=== PATIENT | female | born 1960 | race Caucasian/White ===

== ENCOUNTER 2023-12-29 12:08 | Emergency (ER) | payer MEDICAID, OTHER ==
[~2023-12-29] VITALS: Ht 162.6 cm; Wt 55.0 kg
[2023-12-29 12:21] VITALS: O2SAT 98
[2023-12-29 13:22] LABS: BASOPHILS % 0.8 % (0.0-2.0); EOSINOPHILS % 1.3 % (0.0-5.0); HEMATOCRIT. 41.2 % (36.0-48.0); HEMOGLOBIN. 13.8 g/dL (12.0-16.0); LYMPHOCYTES % 11.6 % (20.0-50.0); MEAN CORPUSCULAR HEMOGLOBIN 29.3 pg (28.0-32.0); MEAN CORPUSCULAR HGB CONC 33.6 g/dL (31.0-37.0); MEAN CORPUSCULAR VOLUME 87.4 fL (81.0-99.0); MEAN PLATELET VOLUME 9.5 fl (7.4-10.4); NEUTROPHILS % 81.3 % (40.0-76.0); PLATELET 209 x1000/uL (130-400); RED BLOOD CELL COUNT 4.71 mill/uL (4.2-5.4); RED CELL DISTRIBUTION WIDTH 12.6 % (11.6-14.6); WHITE BLOOD COUNT 5.9 x1000/uL (4.5-11.0)
[2023-12-29 13:33] LABS: CHLORIDE 100 mEq/L (98-107); POTASSIUM 4.1 mEq/L (3.5-5.1); SODIUM 134 mEq/L (136-145)
[2023-12-29 13:34] LABS: CALCIUM 9.3 mg/dL (8.7-10.4); CARBON DIOXIDE 21 mEq/L (21-32)
[2023-12-29 13:38] LABS: CREATININE 0.8 mg/dL (0.6-1.0)
[2023-12-29 13:39] LABS: GLUCOSE 231 mg/dL (70-105); UREA NITROGEN BLOOD 19 mg/dL (9-23)
[2023-12-29 13:40] LABS: ALANINE AMINOTRANSFERASE 28 IU/L (10-49); ALBUMIN 4.4 g/dL (3.2-4.8); ASPARTATE AMINOTRANSFERASE 37 IU/L (<34)
[2023-12-29 13:41] LABS: BILIRUBIN DIRECT 0.3 mg/dL (<=3.0)
[2023-12-29 14:11] LABS: TROPONIN I HIGH SENSITIVITY < 4 ng/L (3.0-34)
[2023-12-29] MEDS: SODIUM CHLORIDE 0.9% 500 ML IV ONE (15:19)
[2023-12-29 16:07] VITALS: BP 117/76; PULSE 71; RESP 14; TEMP 98
== END 2023-12-29 16:07 | disposition home or self-care (01) ==
LOC: ER 12:08 → EDBEDREQ 14:56 → ER 16:07 → CANBEDREQ 12-31 20:54
DX: E11.65 Type 2 diabetes mellitus with hyperglycemia (principal); R53.1 Weakness
CPT/HCPCS: 80076; 80048; 83690; 85025; 84484; 36415; 71045; 93005; 96360; 99285; J7040; Z7610 ×2

== ENCOUNTER 2024-01-06 11:55 | Inpatient (IN) | payer OTHER ==
[~2024-01-06] VITALS: Ht 157.5 cm; Wt 54.0 kg
[2024-01-06] MEDS: KETOROLAC 30MG/ML VIAL IV STA (12:19)
[2024-01-06 13:10] LABS: BASOPHILS % 0.4 % (0.0-2.0); EOSINOPHILS % 0.3 % (0.0-5.0); HEMATOCRIT. 43.5 % (36.0-48.0); HEMOGLOBIN. 14.4 g/dL (12.0-16.0); LYMPHOCYTES % 7.1 % (20.0-50.0); MEAN CORPUSCULAR HEMOGLOBIN 29.1 pg (28.0-32.0); MEAN CORPUSCULAR VOLUME 88.1 fL (81.0-99.0); MEAN PLATELET VOLUME 9.9 fl (7.4-10.4); MONOCYTES % 3.3 % (2.0-8.0); NEUTROPHILS % 88.9 % (40.0-76.0); PLATELET 212 x1000/uL (130-400); RED BLOOD CELL COUNT 4.94 mill/uL (4.2-5.4); RED CELL DISTRIBUTION WIDTH 12.9 % (11.6-14.6); WHITE BLOOD COUNT 9.2 x1000/uL (4.5-11.0)
[2024-01-06 13:19] LABS: CARBON DIOXIDE 14 mEq/L (21-32); CHLORIDE 100 mEq/L (98-107); INR 0.9; POTASSIUM 4.2 mEq/L (3.5-5.1); PROTHROMBIN TIME 10.5 sec (9.6-11.0); SODIUM 135 mEq/L (136-145)
[2024-01-06 13:20] LABS: CALCIUM 9.5 mg/dL (8.7-10.4)
[2024-01-06 13:24] LABS: CREATININE 0.9 mg/dL (0.6-1.0)
[2024-01-06 13:25] LABS: GLUCOSE 181 mg/dL (70-105); UREA NITROGEN BLOOD 25 mg/dL (9-23)
[2024-01-06] MEDS: SODIUM CHLORIDE 0.9% 1,000 ML IV ONE ×2 (13:49→20:04)
[2024-01-06] MEDS: ONDANSETRON HCL 4MG/2ML INJ IV STA (13:53)
[2024-01-06] MEDS: FAMOTIDINE 20MG/2ML VIAL IV ONE (13:57)
[2024-01-06 14:40] LABS: ALANINE AMINOTRANSFERASE 34 IU/L (10-49); ALBUMIN 4.2 g/dL (3.2-4.8); ASPARTATE AMINOTRANSFERASE 37 IU/L (<34); BILIRUBIN DIRECT 0.3 mg/dL (<=3.0); PROTEIN TOTAL 7.2 g/dL (6.0-8.3)
[2024-01-06 15:30] LABS: ETHANOL BLOOD < 10 mg/dL (<10); TROPONIN I HIGH SENSITIVITY < 4 ng/L (3.0-34)
[2024-01-06 16:01] LABS: TROPONIN I HIGH SENSITIVITY < 4 ng/L (3.0-34)
[2024-01-06 16:09] LABS: CLARITY URINE CLEAR (CLEAR); COLOR URINE YELLOW (YELLOW); GLUCOSE URINE 3+ (NEGATIVE); KETONES URINE 4+ (NEGATIVE); LEUKOCYTE ESTERASE URINE NEGATIVE (NEGATIVE); NITRITE URINE NEGATIVE (NEGATIVE); OCCULT BLOOD URINE NEGATIVE (NEGATIVE); PROTEIN URINE NEGATIVE (NEGATIVE); SPECIFIC GRAVITY URINE 1.034 (1.005-1.030); UROBILINOGEN URINE 0.2 E.U./dL (0.2-1.0)
[2024-01-06 16:59] LABS: BACTERIA URINE TRACE; RBC URINE 0-2 /hpf (0-2); SQUAMOUS EPITHELIAL CELL URINE FEW /lpf (RARE/1+); WBC URINE 0-2 /hpf (0-2)
[2024-01-06] MEDS: ONDANSETRON HCL 4MG/2ML INJ IV ONE (20:04)
[2024-01-06] MEDS: METOCLOPRAMIDE HCL 10MG/2ML VIAL IV NR (23:02)
[2024-01-06] MEDS: SODIUM CHLORIDE 0.9% 1,000 ML IV NR (23:02)
[2024-01-07] VITALS (37 sets, daily range): BP systolic 71–166; BP diastolic 36–80; PULSE 72–106; RESP 17–35; TEMP 97.1–99.7
[2024-01-07] MEDS ORDERED: DEXTROSE 50% WATER 50ML SYRINGE IV PRN ×2 (04:30→17:00)
[2024-01-07] MEDS ORDERED: NALOXONE HCL 0.4MG/ML VIAL IV PRN (04:45)
[2024-01-07] MEDS: BLOOD SUGAR DIAGNOSTIC STRIP TEST SCH ×2 (06:49→17:00)
[2024-01-07] MEDS: HYDROCODONE/ACETAMINOPHEN 5/325MG TABLET PO PRN (09:08)
[2024-01-07] MEDS: INSULIN LISPRO 100 UNITS/ML SUBCUT SCH (09:10)
[2024-01-07] MEDS: LISINOPRIL 40MG TABLET PO SCH (09:14)
[2024-01-07] MEDS ORDERED: SODIUM CHLORIDE 0.9% 1,000 ML IV SCH (12:00)
[2024-01-07] MEDS: INSULIN GLARGINE 100 UNITS/ML SUBCUT NR (12:38)
[2024-01-07 12:40] LABS: CHLORIDE 111 mEq/L (98-107); POTASSIUM 4.9 mEq/L (3.5-5.1); SODIUM 139 mEq/L (136-145)
[2024-01-07 12:42] LABS: CALCIUM 8.9 mg/dL (8.7-10.4)
[2024-01-07 12:46] LABS: CREATININE 1.2 mg/dL (0.6-1.0); GLUCOSE 297 mg/dL (70-105); UREA NITROGEN BLOOD 17 mg/dL (9-23)
[2024-01-07 12:59] LABS: CARBON DIOXIDE < 10 mEq/L (21-32)
[2024-01-07] MEDS: DEXT 5%/0.45% NACL 1000ML 1,000 ML IV SCH ×2 (14:57→20:58)
[2024-01-07] MEDS ORDERED: MAGNESIUM 2 G PREMIX 50 ML IV PRN (17:00)
[2024-01-07] MEDS ORDERED: BLOOD SUGAR DIAGNOSTIC STRIP TEST PRN (17:00)
[2024-01-07 17:22] LABS: CHLORIDE 108 mEq/L (98-107); SODIUM 134 mEq/L (136-145)
[2024-01-07 17:23] LABS: CALCIUM 8.4 mg/dL (8.7-10.4)
[2024-01-07 17:28] LABS: CREATININE 1.2 mg/dL (0.6-1.0); GLUCOSE 367 mg/dL (70-105)
[2024-01-07 17:29] LABS: UREA NITROGEN BLOOD 14 mg/dL (9-23)
[2024-01-07 17:31] LABS: PHOSPHORUS 3.1 mg/dL (2.5-4.9)
[2024-01-07 17:35] LABS: CARBON DIOXIDE < 10 mEq/L (21-32)
[2024-01-07] MEDS: PANTOPRAZOLE SODIUM 40 MG/VIAL IV SCH (17:35)
[2024-01-07] MEDS: INSULIN REGULAR 100U/100ML PMX 100 ML IV SCH (17:36)
[2024-01-07 18:09] LABS: BG BASE EXCESS -27.8 mmol/L (-2.0-2.0); BG CARBOXYHEMOGLOBIN 0.1 % (0.5-1.5); BG DEOXYHEMOGLOBIN 0.9 % (0.0-5.0); BG FRACTION INSPIRED OXYGEN 21; BG HCO3 ACT 2.2 mmol/L (22.0-26.0); BG METHEMOGLOBIN 0.3 % (0.0-1.5); BG OXYGEN SATURATION 99.1 % (92.0-98.5); BG OXYHEMOGLOBIN 98.7 % (94.0-97.0); BG PCO2 9.9 mmHg (35.0-45.0); BG PH 6.969 (7.350-7.450); BG PO2 148.9 mmHg (75.0-100.0); BG SAMPLE SITE RIGHT RADIAL; BG TOTAL HEMOGLOBIN 14.3 g/dL (12.0-18.0); BG VENT MODE ROOM AIR
[2024-01-07] MEDS: SODIUM CHLORIDE 0.9% 1,000 ML IV SCH (18:43)
[2024-01-07] MEDS ORDERED: DEXT 5%/0.9% NACL 1,000 ML IV SCH (20:45)
[2024-01-07] MEDS: ONDANSETRON HCL 4MG/2ML INJ IV PRN (20:57)
[2024-01-07] MEDS: ATORVASTATIN CALCIUM 10MG TABLET PO SCH (21:00)
[2024-01-07 21:43] LABS: CHLORIDE 113 mEq/L (98-107); POTASSIUM 4.7 mEq/L (3.5-5.1); SODIUM 137 mEq/L (136-145)
[2024-01-07 21:45] LABS: CALCIUM 8.6 mg/dL (8.7-10.4)
[2024-01-07 21:47] LABS: BG BASE EXCESS -26.7 mmol/L (-2.0-2.0); BG CARBOXYHEMOGLOBIN 0.3 % (0.5-1.5); BG DEOXYHEMOGLOBIN 0.5 % (0.0-5.0); BG FRACTION INSPIRED OXYGEN 21; BG HCO3 ACT 2.5 mmol/L (22.0-26.0); BG METHEMOGLOBIN 0.3 % (0.0-1.5); BG OXYGEN SATURATION 99.5 % (92.0-98.5); BG OXYHEMOGLOBIN 98.9 % (94.0-97.0); BG PH 7.009 (7.350-7.450); BG PO2 184.9 mmHg (75.0-100.0); BG SAMPLE SITE RIGHT RADIAL; BG TOTAL HEMOGLOBIN 13.5 g/dL (12.0-18.0); BG VENT MODE ROOM AIR
[2024-01-07 21:49] LABS: CREATININE 1.1 mg/dL (0.6-1.0); GLUCOSE 221 mg/dL (70-105)
[2024-01-07 21:50] LABS: BG BASE EXCESS -26.4 mmol/L (-2.0-2.0); BG CARBOXYHEMOGLOBIN 0.2 % (0.5-1.5); BG DEOXYHEMOGLOBIN 1.2 % (0.0-5.0); BG FRACTION INSPIRED OXYGEN 21; BG HCO3 ACT 2.5 mmol/L (22.0-26.0); BG METHEMOGLOBIN 0.1 % (0.0-1.5); BG OXYGEN SATURATION 98.8 % (92.0-98.5); BG OXYHEMOGLOBIN 98.5 % (94.0-97.0); BG PCO2 9.9 mmHg (35.0-45.0); BG PH 7.019 (7.350-7.450); BG PO2 140.1 mmHg (75.0-100.0); BG SAMPLE SITE RIGHT RADIAL; BG TOTAL HEMOGLOBIN 14.2 g/dL (12.0-18.0); BG VENT MODE ROOM AIR
[2024-01-07 21:50] LABS: UREA NITROGEN BLOOD 14 mg/dL (9-23)
[2024-01-07 21:52] LABS: PHOSPHORUS 2.1 mg/dL (2.5-4.9)
[2024-01-07 21:57] LABS: CARBON DIOXIDE < 10 mEq/L (21-32)
[2024-01-07] MEDS ORDERED: DEXTROSE 5% WATER 1,000 ML IV SCH (22:30)
[2024-01-07] MEDS: SODIUM BICARBONATE 150MEQ in DEXTROSE 5% WATER 1000ML IV SCH (23:11)
[2024-01-08] VITALS (97 sets, daily range): BP systolic 70–124; BP diastolic 48–83; PULSE 77–110; RESP 15–36; TEMP 97.5–98.2
[2024-01-08] MEDS: NOREPINEPHRINE 8MG/250ML PMX 250 ML IV PRN (00:44)
[2024-01-08 02:41] LABS: CHLORIDE 113 mEq/L (98-107); POTASSIUM 4.1 mEq/L (3.5-5.1); SODIUM 139 mEq/L (136-145)
[2024-01-08 02:43] LABS: CALCIUM 8.6 mg/dL (8.7-10.4)
[2024-01-08 02:48] LABS: CREATININE 1.1 mg/dL (0.6-1.0); GLUCOSE 119 mg/dL (70-105); UREA NITROGEN BLOOD 18 mg/dL (9-23)
[2024-01-08 02:53] LABS: CARBON DIOXIDE < 10 mEq/L (21-32); PHOSPHORUS 0.7 mg/dL (2.5-4.9)
[2024-01-08 06:42] LABS: HEMATOCRIT. 40.6 % (36.0-48.0); HEMOGLOBIN. 13.2 g/dL (12.0-16.0); MEAN CORPUSCULAR HEMOGLOBIN 28.3 pg (28.0-32.0); MEAN CORPUSCULAR HGB CONC 32.4 g/dL (31.0-37.0); MEAN CORPUSCULAR VOLUME 87.2 fL (81.0-99.0); MEAN PLATELET VOLUME 10.1 fl (7.4-10.4); PLATELET 262 x1000/uL (130-400); RED BLOOD CELL COUNT 4.65 mill/uL (4.2-5.4); RED CELL DISTRIBUTION WIDTH 13.1 % (11.6-14.6); WHITE BLOOD COUNT 27.3 x1000/uL (4.5-11.0)
[2024-01-08 06:47] LABS: CHLORIDE 110 mEq/L (98-107); POTASSIUM 3.8 mEq/L (3.5-5.1); SODIUM 138 mEq/L (136-145)
[2024-01-08 06:48] LABS: CALCIUM 8.4 mg/dL (8.7-10.4)
[2024-01-08 06:53] LABS: GLUCOSE 126 mg/dL (70-105); UREA NITROGEN BLOOD 19 mg/dL (9-23)
[2024-01-08 06:57] LABS: DIFFERENTIAL COMMENT 1
[2024-01-08] MEDS ORDERED: LIDOCAINE HCL 1% 10 MG/ML 10ML VIAL ONE (07:29)
[2024-01-08 08:10] LABS: PHOSPHORUS 0.6 mg/dL (2.5-4.9)
[2024-01-08 08:11] LABS: CARBON DIOXIDE < 10 mEq/L (21-32)
[2024-01-08 09:58] LABS: BG BASE EXCESS -13.4 mmol/L (-2.0-2.0); BG CARBOXYHEMOGLOBIN 0.2 % (0.5-1.5); BG DEOXYHEMOGLOBIN 1.6 % (0.0-5.0); BG FRACTION INSPIRED OXYGEN 21; BG HCO3 ACT 9.2 mmol/L (22.0-26.0); BG METHEMOGLOBIN 0.1 % (0.0-1.5); BG OXYGEN SATURATION 98.4 % (92.0-98.5); BG OXYHEMOGLOBIN 98.1 % (94.0-97.0); BG PCO2 16.6 mmHg (35.0-45.0); BG PH 7.363 (7.350-7.450); BG SAMPLE SITE RIGHT RADIAL; BG TOTAL HEMOGLOBIN 13.8 g/dL (12.0-18.0); BG VENT MODE ROOM AIR
[2024-01-08] MEDS ORDERED: IPRATROPIUM/ALBUTEROL 0.5-3(2.5)MG/3ML NEB HHN PRN (11:15)
[2024-01-08 11:38] LABS: POTASSIUM 3.8 mEq/L (3.5-5.1)
[2024-01-08 11:39] LABS: CALCIUM 8.4 mg/dL (8.7-10.4)
[2024-01-08] MEDS: POTASSIUM PHOSPHATE 30 MMOL in DEXT 5% WATER 490 ML IV SCH (11:53)
[2024-01-08 16:11] LABS: POTASSIUM 3.9 mEq/L (3.5-5.1)
[2024-01-08 16:13] LABS: CALCIUM 7.9 mg/dL (8.7-10.4)
[2024-01-08] MEDS: DEXT 5%/0.45% NACL 1000ML 1,000 ML IV SCH (17:58)
[2024-01-08 18:49] LABS: CARBON DIOXIDE 16 mEq/L (21-32); CHLORIDE 106 mEq/L (98-107); POTASSIUM 3.7 mEq/L (3.5-5.1); SODIUM 138 mEq/L (136-145)
[2024-01-08 18:51] LABS: CALCIUM 7.7 mg/dL (8.7-10.4)
[2024-01-08 18:54] LABS: CREATININE 0.9 mg/dL (0.6-1.0)
[2024-01-08 18:55] LABS: GLUCOSE 219 mg/dL (70-105); UREA NITROGEN BLOOD 10 mg/dL (9-23)
[2024-01-08 20:28] LABS: PHOSPHORUS 2.7 mg/dL (2.5-4.9)
[2024-01-08 20:51] LABS: PLATELET ESTIMATE NORMAL
[2024-01-08] MEDS: KCL 20MEQ/100ML PREMIX 100 ML IV PRN (22:37)
[2024-01-09] VITALS (98 sets, daily range): BP systolic 67–126; BP diastolic 58–88; PULSE 73–112; RESP 11–26; TEMP 97.9–98.7
[2024-01-09 00:20] LABS: CHLORIDE 107 mEq/L (98-107); POTASSIUM 3.6 mEq/L (3.5-5.1); SODIUM 138 mEq/L (136-145)
[2024-01-09 00:21] LABS: CALCIUM 7.8 mg/dL (8.7-10.4); CARBON DIOXIDE 19 mEq/L (21-32)
[2024-01-09 00:26] LABS: CREATININE 0.9 mg/dL (0.6-1.0); GLUCOSE 209 mg/dL (70-105); UREA NITROGEN BLOOD 8 mg/dL (9-23)
[2024-01-09 05:35] LABS: CARBON DIOXIDE 21 mEq/L (21-32); CHLORIDE 107 mEq/L (98-107); POTASSIUM 3.1 mEq/L (3.5-5.1); SODIUM 139 mEq/L (136-145)
[2024-01-09 05:36] LABS: CALCIUM 7.7 mg/dL (8.7-10.4)
[2024-01-09 05:41] LABS: CREATININE 0.7 mg/dL (0.6-1.0); GLUCOSE 193 mg/dL (70-105); UREA NITROGEN BLOOD 6 mg/dL (9-23)
[2024-01-09] MEDS: POTASSIUM CHLORIDE 40 MEQ in SODIUM CHLORIDE 0.9% 230 ML IV PRN (09:11)
[2024-01-09] MEDS: SODIUM PHOSPHATE 15 MMOL in SODIUM CHLORIDE 0.9% 245 ML IV PRN (09:11)
[2024-01-09] MEDS ORDERED: DEXTROSE 50% WATER 50ML SYRINGE IV PRN (10:15)
[2024-01-09] MEDS: POTASSIUM CHLORIDE 20MEQ TABLET SR PO NR (11:39)
[2024-01-09] MEDS: INSULIN GLARGINE 100 UNITS/ML SUBCUT NR (11:40)
[2024-01-09 11:44] LABS: BASOPHILS % 0.4 % (0.0-2.0); EOSINOPHILS % 0.1 % (0.0-5.0); HEMOGLOBIN. 12.9 g/dL (12.0-16.0); LYMPHOCYTES % 10.3 % (20.0-50.0); MEAN CORPUSCULAR HEMOGLOBIN 28.5 pg (28.0-32.0); MEAN CORPUSCULAR HGB CONC 33.2 g/dL (31.0-37.0); MEAN CORPUSCULAR VOLUME 85.7 fL (81.0-99.0); MEAN PLATELET VOLUME 9.3 fl (7.4-10.4); MONOCYTES % 4.7 % (2.0-8.0); NEUTROPHILS % 84.5 % (40.0-76.0); PLATELET 156 x1000/uL (130-400); RED BLOOD CELL COUNT 4.55 mill/uL (4.2-5.4); RED CELL DISTRIBUTION WIDTH 13.4 % (11.6-14.6); WHITE BLOOD COUNT 11.9 x1000/uL (4.5-11.0)
[2024-01-09] MEDS: BLOOD SUGAR DIAGNOSTIC STRIP TEST SCH (12:50)
[2024-01-09] MEDS: INSULIN LISPRO 100 UNITS/ML SUBCUT SCH (12:57)
[2024-01-09] MEDS: POTASSIUM PHOSPHATE 30 MMOL in DEXT 5% WATER 490 ML IV SCH (12:57)
[2024-01-09] MEDS ORDERED: SODIUM CHLORIDE 0.9% 500 ML IV ONE (17:30)
[2024-01-09] MEDS: SODIUM CHLORIDE 0.9% 500 ML IV ONE (17:39)
[2024-01-09] MEDS ORDERED: INSULIN GLARGINE 100 UNITS/ML SUBCUT NR (18:00)
[2024-01-09 19:13] LABS: BASOPHILS % 0.5 % (0.0-2.0); HEMATOCRIT. 37.6 % (36.0-48.0); HEMOGLOBIN. 12.7 g/dL (12.0-16.0); LYMPHOCYTES % 9.3 % (20.0-50.0); MEAN CORPUSCULAR HEMOGLOBIN 28.9 pg (28.0-32.0); MEAN CORPUSCULAR HGB CONC 33.8 g/dL (31.0-37.0); MEAN CORPUSCULAR VOLUME 85.6 fL (81.0-99.0); MEAN PLATELET VOLUME 9.5 fl (7.4-10.4); MONOCYTES % 5.4 % (2.0-8.0); NEUTROPHILS % 84.8 % (40.0-76.0); PLATELET 143 x1000/uL (130-400); RED CELL DISTRIBUTION WIDTH 13.5 % (11.6-14.6); WHITE BLOOD COUNT 10.2 x1000/uL (4.5-11.0)
[2024-01-09] MEDS: INSULIN GLARGINE 100 UNITS/ML SUBCUT SCH (21:29)
[2024-01-09] MEDS: MIDODRINE HCL 5MG TABLET PO SCH (21:29)
[2024-01-09] MEDS ORDERED: INSULIN GLARGINE 100 UNITS/ML SUBCUT SCH (22:00)
[2024-01-10] VITALS (23 sets, daily range): BP systolic 66–116; BP diastolic 53–96; PULSE 81–116; RESP 13–27; TEMP 98.1–98.3; O2SAT 96
== END 2024-01-10 11:20 | disposition home or self-care (01) | DRG 48 ==
LOC: ER 12:02 → 5WST 19:30 → EDBEDREQTM 19:36 → EDBEDREQ 19:36 → 6EST 01-07 01:51 → CVICU 01-07 17:11
PROVIDERS: ADMIT Internal Medicine; ATTEND Internal Medicine
PROC: 02HV33Z Insertion of Infusion Device into Superior Vena Cava, Percutaneous Approach (ICD-10-PCS; principal; 2024-01-08)
PROC: B548ZZA Ultrasonography of Superior Vena Cava, Guidance (ICD-10-PCS; 2024-01-08)
DX: E11.43 Type 2 diabetes mellitus with diabetic autonomic (poly)neuropathy (principal); J96.90 Respiratory failure, unspecified, unspecified whether with hypoxia or hypercapnia; G93.41 Metabolic encephalopathy; N17.9 Acute kidney failure, unspecified; R65.10 Systemic inflammatory response syndrome (SIRS) of non-infectious origin without acute organ dysfunction; E83.39 Other disorders of phosphorus metabolism; E86.0 Dehydration; E11.10 Type 2 diabetes mellitus with ketoacidosis without coma; D72.829 Elevated white blood cell count, unspecified; E87.6 Hypokalemia; K31.84 Gastroparesis; Z79.4 Long term (current) use of insulin; Z79.899 Other long term (current) drug therapy
CPT/HCPCS: 36415; 36573; 36600; 71045; 74176; 76705; 80048; 80076; 80320; 81003; 82375; 82805; 82962; 83036; 83735; 84100; 84145; 84484; 85025; 93005; 99285; C1725; C9113; J1815; J1885; J2405; J2765; J3480; J3490; J7030; J7050; J7060; J7070; G0480